=== PATIENT | male | born 1975 | race Caucasian/White ===

== ENCOUNTER 2017-10-25 12:59 | Emergency (ER) | payer OTHER ==
[~2017-10-25 12:59] MED LIST: ATROPINE 1 MG/10 ML SYRINGE; DOPamine-D5W 1.6 MG/ML 250 ML; EPINEPHrine 0.1 MG/ML SYG; ETOMIDATE 20 MG INJ; NA BICARBONATE 8.4% 50 ML SYG
[2017-10-25] MEDS ORDERED: SOD CHLORIDE 0.9% 500 ML IV (13:08)
[2017-10-25 13:33] LABS: ABNORMAL IP MESSAGE 1; HEMATOCRIT 32.7 % (42.0-52.0); HEMOGLOBIN 10.3 g/dl (14.0-18.0); MEAN CORPUSCULAR HEMOGLOBIN 27.5 pg (29.0-33.0); MEAN CORPUSCULAR HGB CONC 31.5 g/dl (32.0-37.0); MEAN CORPUSCULAR VOLUME 87.4 fl (82.0-101.0); MEAN PLATELET VOLUME 10.8 fl (7.4-10.4); PLATELET COUNT 120 10^3/UL (140-415); POSITIVE DIFF @See below; RED BLOOD COUNT 3.74 10^6/ul (4.70-6.10)
[2017-10-25 13:33] LABS: WHITE BLOOD COUNT 1.8 10^3/ul (4.8-10.8)
[2017-10-25] MEDS: IODIXANOL LOCM 100 ML BTL (13:45)
[2017-10-25] MEDS: SOD CHLORIDE 0.9% 100 ML (13:45)
[2017-10-25 13:48] LABS: INR 1.24; PROTIME 15.8 Sec (11.9-14.9); PT RATIO 1.2
[2017-10-25 13:49] LABS: PARTIAL THROMBOPLASTIN TIME 30.3 Sec (25.0-35.0)
[2017-10-25 13:53] LABS: ADD MAN DIFF? YES
[2017-10-25 13:54] LABS: ALANINE AMINOTRANSFERASE 114 IU/L (13-69); ALKALINE PHOSPHATASE 166 IU/L (42-121); ANION GAP 30 (8-16); ASPARTATE AMINO TRANSFERASE 86 IU/L (15-46); BILIRUBIN,INDIRECT 0.3 mg/dl (0-1.1); BILIRUBIN,TOTAL 0.3 mg/dl (0.2-1.3); BLOOD UREA NITROGEN 57 mg/dl (7-20); CALCIUM 8.8 mg/dl (8.4-10.2); CARBON DIOXIDE 13 mmol/L (21-31); CHLORIDE 91 mmol/L (97-110); CREATININE 2.11 mg/dl (0.61-1.24); GLUCOSE 321 mg/dl (70-220); POTASSIUM 4.4 mmol/L (3.5-5.1); SODIUM 130 mmol/L (135-144); TOTAL PROTEIN 7.3 g/dl (6.1-8.1)
[2017-10-25 13:55] LABS: ALBUMIN 3.9 g/dl (3.3-4.9); ALBUMIN/GLOBULIN RATIO 1.14
[2017-10-25 14:05] LABS: B-TYPE NATRIURETIC PEPTIDE 514 PG/ML (0-125); TROPONIN-I 0.025 ng/ml (0.00-0.12)
[2017-10-25] MEDS: VANCOMYCIN 1 GM (PMX) 250 ML IVPB (14:18)
[2017-10-25] MEDS: CEFEPIME 1GM/50 ML (PMX) 50 ML IVPB (14:19)
[2017-10-25 14:40] LABS: ANISOCYTOSIS 2+ (0-0); BAND NEUTROPHILS #M 0.4 10^3/ul (0.0-0.6); BAND NEUTROPHILS % (M) 26 % (0-4); EOSINOPHILS % (M) 1 % (0-7); GIANT THROMBO% (M) 1 % (0-0); LYMPHOCYTES #M 0.8 10^3/ul (0.8-2.9); LYMPHOCYTES % (M) 49 % (15-51); METAMYELOCYTES %M 2 % (0-0); MICROCYTOSIS 1+ (0-0); MONOCYTES % (M) 3 % (0-11); MYELOCYTES % (M) 1 % (0-0); PLATELET ESTIMATE DECREASED; POLYCHROMASIA 3+ (0-0); REACTIVE LYMPHOCYTES% (M) 2 % (0-0); SEGMENTED NEUTROPHILS (M) % 17 % (39-77); SMUDGE%M 3 % (0-0)
[2017-10-25 14:43] LABS: SEG NEUT #M 0.3 10^3/ul (1.7-7.5)
[2017-10-25 14:44] LABS: AADO2 Arterial 552.1 mmHg (7.0-24.0); Allen Test ACCEPTAB; Arterial Base Excess -23.7 mmol/L (-3.0-3); Arterial Blood Gas Oxygen Sat 94.6 mmHG (95.0-98.0); Arterial COHb 0.3 % (0.0-3.0); Arterial HCO3 8.2 mmol/L (22.0-26.0); Arterial MetHb 0.3 % (0.0-1.5); Arterial Total Hemglobin 9.4 g/dl (12.0-18.0); Arterial pCO2 43.2 mmhg (35-45); MODE VENT - AC; Site Right Radial
[2017-10-25] MEDS ORDERED: NORepinephrine 8MG/250 ML (PMX 250 ML (15:00)
[2017-10-25] MEDS: SODIUM CHLORIDE 0.9% 1L BAG IV* (15:06)
[2017-10-25] MEDS: NORepinephrine 8MG/250 ML (PMX 250 ML IV (15:28)
[2017-10-25] MEDS ORDERED: SODIUM BICARBONATE (IV ADD) 150 MEQ in DEXTROSE 5% 1,000 ML IV (15:30)
[2017-10-25] MEDS ORDERED: NA BICARBONATE 8.4% 50 ML SYG ×2 (15:39→15:58)
[2017-10-25] MEDS ORDERED: EPINEPHrine 0.1 MG/ML SYG ×2 (15:43→16:36)
[2017-10-25] MEDS ORDERED: INSULIN HUMAN REGULAR 100 UNIT in SOD CHLORIDE 0.9% 99 ML IV (16:00)
[2017-10-25] MEDS ORDERED: FAMOTIDINE 20 MG INJ IV (16:00)
[2017-10-25] MEDS ORDERED: IPRATROPIUM (HFA) 12.9 GM INHALER INH (16:00)
[2017-10-25] MEDS ORDERED: DOCUSATE SODIUM 100 MG CAP PO (16:00)
[2017-10-25] MEDS ORDERED: NORepinephrine 8MG/250 ML (PMX 250 ML IV (16:00)
[2017-10-25] MEDS ORDERED: PROPOFOL 100 ML IV (16:00)
[2017-10-25] MEDS ORDERED: BISACODYL (EC) 5 MG TAB PO (16:00)
[2017-10-25] MEDS ORDERED: ACCU-CHEK XX (16:00)
[2017-10-25] MEDS ORDERED: morphine 2 MG INJ IV (16:00)
[2017-10-25] MEDS ORDERED: ACETAMINOPHEN 650MG/20.3ML CUP PO (16:00)
[2017-10-25] MEDS ORDERED: BISACODYL 10 MG SUPP PR (16:00)
[2017-10-25] MEDS ORDERED: ONDANSETRON 4 MG INJ IV (16:00)
[2017-10-25] MEDS ORDERED: ACETAMINOPHEN 650 MG SUPP PR (16:00)
[2017-10-25] MEDS ORDERED: DEXTROSE 50% 50 ML SYRINGE IV ×2 (16:00)
[2017-10-25] MEDS ORDERED: ALBUTEROL HFA 8 GM INHALER INH (16:00)
[2017-10-25] MEDS ORDERED: VANCOMYCIN IV PER PHARMACY XX (16:00)
[2017-10-25] MEDS: HEPARIN 25000 UNITS/250 ML 250 ML IV (16:10)
[2017-10-25 16:11] LABS: AADO2 Arterial 553.3 mmHg (7.0-24.0); Arterial Base Excess -17.6 mmol/L (-3.0-3); Arterial Blood Gas Oxygen Sat 78.8 mmHG (95.0-98.0); Arterial COHb 1.2 % (0.0-3.0); Arterial Fraction of Oxyhgb 77.6 % (93.0-99.0); Arterial MetHb 0.3 % (0.0-1.5); Arterial Total Hemglobin 7.4 g/dl (12.0-18.0); Arterial pCO2 85.1 mmhg (35-45); MODE VENT - AC; Site Right Brachial
[2017-10-25] MEDS ORDERED: SODIUM BICARBONATE (16:17)
[2017-10-25] MEDS: SODIUM BICARBONATE (IV ADD) 150 MEQ in DEXTROSE 5% 850 ML IV (16:38)
[2017-10-25] MEDS ORDERED: VANCOMYCIN 2 GM in SOD CHLORIDE 0.9% 500 ML IVPB (17:00)
[2017-10-25] MEDS ORDERED: EPINEPHrine 4 MG in DEXTROSE 5% 246 ML IV (17:00)
[2017-10-25] MEDS ORDERED: ARTIFICIAL TEARS 15 ML OPH BOTH EYES (21:00)
[2017-10-26] MEDS ORDERED: CEFEPIME 2GM/50 ML (PMX) 50 ML IVPB (01:00)
== END 2017-10-25 19:25 | disposition expired ==
LOC: E/R 12:59
DX: I46.9 Cardiac arrest, cause unspecified (principal); I26.99 Other pulmonary embolism without acute cor pulmonale; K56.691 Other complete intestinal obstruction; A41.9 Sepsis, unspecified organism; E11.9 Type 2 diabetes mellitus without complications; Z79.4 Long term (current) use of insulin; Z85.47 Personal history of malignant neoplasm of testis
CPT/HCPCS: 31500; 36415; 36600; 70450; 71045; 71275; 73560; 74177; 80053; 82803; 82962; 83605; 83880; 84484; 85025; 85610; 85730; 87040; 92950; 93005; 94002; 96374; 96375; 99291-25